=== PATIENT | female | born 1990 | race Caucasian/White ===

== ENCOUNTER 2016-07-10 09:32 | Emergency (ER) | payer OTHER ==
[2016-07-10 09:32] VITALS: BMI 23.1
[2016-07-10 09:43] VITALS: TEMP 98.1
[2016-07-10] MEDS ORDERED: Sodium Chloride 0.9% 1,000 ML IV ONE (10:03)
--- NOTE | 2016-07-10 10:07 | C.PDOC ---
History Of Present Illness 26 y/o female pmhx lupus and gastritis presents to the ED with complains of abdominal pain, nausea, vomiting and diarrhea since yesterday. Pt denies fever, chills, chest pain, SOB, urinary symptoms or any other complaints. Time Seen by Provider: 07/10/16 09:53 Chief Complaint (Nursing): Abdominal Pain History Per: Patient History/Exam Limitations: no limitations Onset/Duration Of Symptoms: Hrs Current Symptoms Are (Timing): Still Present Radiation Of Pain To:: None Quality Of Discomfort: "Pain" Associated Symptoms: Nausea, Vomiting, Diarrhea. denies: Fever, Chills, Urinary Symptoms Alleviating Factors: None Recent travel outside of the [place]: No Past Medical History Reviewed: Historical Data, Nursing Documentation, Vital Signs Vital Signs: Last Vital Signs Temp 98.1 F 07/10/16 09:42 Pulse 99 H 07/10/16 11:46 Resp 17 07/10/16 11:46 BP 140/87 07/10/16 11:46 Pulse Ox 99 07/10/16 11:46 - Medical History PMH: Gastritis, Hiatal Hernia Denies: Colonic Polyps, Fractures, Chronic Kidney Disease Surgical History: Denies: Endoscopy - [facility] Procedures CERVICAL LES CAUTERIZAT (12/15/14) D & C NEC (12/15/14) Family History: States: Unknown Family Hx - Social History Hx Tobacco Use: No Hx Alcohol Use: Yes Hx Substance Use: No - Immunization History Hx Tetanus Toxoid Vaccination: No Hx Influenza Vaccination: No Hx Pneumococcal Vaccination: No Review Of Systems Except As Marked, All Systems Reviewed And Found Negative. Constitutional: Negative for: Fever, Chills Gastrointestinal: Positive for: Nausea, Vomiting, Abdominal Pain, Diarrhea. Negative for: Hematemesis Genitourinary: Negative for: Dysuria, Frequency, Hematuria Physical Exam - Physical Exam Appears: Non-toxic, No Acute Distress Skin: Warm, Dry, No Rash Head: Atraumatic, Normacephalic Oral Mucosa: Moist Neck: Normal ROM, Supple Chest: Symmetrical Cardiovascular: Rhythm Regular Respiratory: Normal Breath Sounds, No Rales, No Rhonchi, No Wheezing Gastrointestinal/Abdominal: Soft, Tenderness (epigastric), No Guarding, No Rebound Extremity: Bilateral: Atraumatic Neurological/Psych: Oriented x3 ED Course And Treatment - Laboratory Results Result Diagrams: 07/10/16 10:38 07/10/16 10:38 O2 Sat by Pulse Oximetry: 100 (on room air) Pulse Ox Interpretation: Normal Medical Decision Making Medical Decision Making: Plan: * UA * IV fluids * labs * protonix, zofran * 1250: pt reeval. statse pain improved. non specifc leukoctyosis. on prednisone. pain improved. ct neg. pt smiling asking for d/c. Disposition - Disposition Referrals: [facility] [Outside] [facility] [Outside] Disposition: HOME/ ROUTINE Disposition Time: 12:53 Condition: STABLE Additional Instructions: please follow up with your doctor. return to er with worsening symptoms or concerns. Prescriptions: Polyethylene Glycol 3350 [Miralax] 17 gm PO DAILY PRN #1 ml PRN Reason: Constipation Famotidine [Pepcid] 20 mg PO DAILY #20 tab Instructions: Acute Abdominal Pain (ED) - Clinical Impression Clinical Impression: Abdominal pain, Constipation - Scribe Statement The provider has reviewed the documentation as recorded by the Tamiko Neal Provider Attestation: All medical record entries made by the Tamiko were at my direction and personally dictated by me. I have reviewed the chart and agree that the record accurately reflects my personal performance of the history, physical exam, medical decision making, and the department course for this patient. I have also personally directed, reviewed, and agree with the discharge instructions and disposition.
[2016-07-10] MEDS ORDERED: Sodium Chloride 0.9% 1,000 ML ONE (10:32)
[2016-07-10 10:51] LABS: BASO % 0.2 % (0.0-2.0); EOS # 0.1 K/uL (0.0-0.7); EOS % 0.4 % (0.0-4.0); HEMATOCRIT 38.5 % (34.0-47.0); LYMPH # 1.1 K/uL (1.0-4.3); LYMPH % 7.3 % (20.0-40.0); MEAN CORPUSCULAR HGB CONC 33.7 g/dL (33.0-37.0); MEAN PLATELET VOLUME 8.1 fL (7.2-11.7); MONO % 6.6 % (0.0-10.0); PLATELET COUNT 295 K/uL (130-400); RED CELL DISTRIBUTION WIDTH 13.6 % (11.5-14.5); WHITE BLOOD COUNT 14.8 K/uL (4.8-10.8)
[2016-07-10 11:00] LABS: INR 1.2
[2016-07-10 11:05] LABS: RBC URINE 4 /hpf (0-3); URINE BILIRUBIN NEGATIVE (NEGATIVE); URINE BLOOD 1+ (NEGATIVE); URINE COLOR Yellow (YELLOW); URINE GLUCOSE (UA) NORMAL (Normal); URINE KETONE NEGATIVE (NEGATIVE); URINE LEUKOCYTE ESTERASE 1+ Leu/uL (Negative); URINE PROTEIN NEGATIVE (NEGATIVE); URINE UROBILINOGEN NORMAL mg/dL (0.2-1.0); WBC URINE 3 /hpf (0-5)
[2016-07-10 11:06] LABS: CHLORIDE 99 mmol/L (98-107); POTASSIUM 3.5 mmol/L (3.6-5.2); SODIUM 141 mmol/L (132-148)
[2016-07-10 11:08] LABS: ALB/GLOB RATIO 1.1 (1.0-2.1); AST/SGOT 18 U/L (14-36); BILIRUBIN,TOTAL 0.6 mg/dL (0.2-1.3); CARBON DIOXIDE 27 mmol/L (22-30); GFR AFRICAN-AMERICAN > 60; TOTAL PROTEIN 7.3 g/dL (6.3-8.3)
[2016-07-10 11:09] LABS: ALKALINE PHOSPHATASE 53 U/L (38-126); ALT/SGPT 32 U/L (9-52); BLOOD UREA NITROGEN 13 mg/dL (7-17); GLUCOSE,RANDOM 84 mg/dL (65-105)
[2016-07-10 11:16] LABS: BASOPHIL 1 % (0-2); EOSINOPHIL 1 % (0-4); NEUTROPHIL 78 % (50-75); REACTIVE LYMPHOCYTES 2 % (0-0); TOTAL CELLS COUNTED 100
[2016-07-10] MEDS ORDERED: Morphine 4 MG/ML VIAL ONE (11:43)
[2016-07-10] MEDS ORDERED: Iodixanol 320 MG/ML 100 ML BOTTLE IV ONE (11:46)
--- NOTE | 2016-07-10 12:20 | CT ---
PROCEDURE: CT Abdomen and Pelvis with contrast HISTORY: right sided abd pain COMPARISON: Abdominal ultrasound performed 10/25/15 TECHNIQUE: Contrast dose: 100 cc Visipaque 320 Radiation dose: Total exam DLP = 266.52 mGy-cm. FINDINGS: LOWER THORAX: No visible consolidation, pleural effusion, or pneumothorax. LIVER: Hepatomegaly. Mild hypoattenuation of the liver consistent with hepatic steatosis. GALLBLADDER AND BILE DUCTS: Unremarkable. PANCREAS: Unremarkable. SPLEEN: Unremarkable. ADRENALS: Unremarkable. KIDNEYS AND URETERS: The kidneys enhance symmetrically. No evidence of hydronephrosis or obstructing calculus. VASCULATURE: No aortic aneurysm. BOWEL: The stomach is nondistended. Lack of oral contrast limits evaluation for bowel pathology. Visualized bowel loops appear within normal limits of caliber without evidence of obstruction. Severe constipation. APPENDIX: The appendix appears within normal limits of caliber. No secondary signs of acute appendicitis. PERITONEUM: Significant free fluid. No definite free air. LYMPH NODES: No bulky lymphadenopathy evident. BLADDER: Unremarkable. REPRODUCTIVE: The uterus is present. BONES: No acute osseous abnormality is detected. OTHER FINDINGS: None. IMPRESSION: Severe constipation. Hepatic steatosis. Hepatomegaly.
[2016-07-10 12:54] VITALS: O2SAT 100
[2016-07-10 13:01] VITALS: BP 116/77; PULSE 86; RESP 16
== END 2016-07-10 13:20 | disposition home or self-care (01) ==
LOC: C.ER 09:32
DX: K59.00 Constipation, unspecified (principal); R10.13 Epigastric pain

== ENCOUNTER 2016-11-24 07:10 | Day surgery (SDC) | payer OTHER ==
[2016-11-24 07:21] VITALS: BMI 24.9
[2016-11-24 07:45] VITALS: O2SAT 100
[2016-11-24] MEDS ORDERED: Propofol 10 mg/ml Inj (20 ML) ONE ×2 (08:34→08:35)
[2016-11-24] MEDS ORDERED: Midazolam 2 MG/2 ML VIAL ONE (08:34)
[2016-11-24] MEDS ORDERED: Lactated Ringer's 1,000 ML IV ONE (08:35)
[2016-11-24 09:07] VITALS: TEMP 97.8
[2016-11-24 09:44] VITALS: BP 120/80; PULSE 84; RESP 16
== END 2016-11-24 09:33 | disposition home or self-care (01) ==
LOC: C.ENDO 07:10
PROVIDERS: ATTEND Internal Medicine Gastroenterology
DX: K64.8 Other hemorrhoids (principal)
CPT/HCPCS: 45378; 84703; J2250; J2405; J2704; J7120

== ENCOUNTER 2016-12-01 07:02 | Day surgery (SDC) | payer OTHER ==
[2016-12-01] MEDS ORDERED: Propofol 10 mg/ml Inj (20 ML) ONE ×2 (09:18)
--- NOTE | 2016-12-01 09:28 | CP.SDSHP ---
Same Day Surgery H & P - History Proposed Procedure: Colonoscopy Pre-Op Diagnosis: Lower GI bleeding - Previous Medical/Surgical History Misc: Other Comments: SLE, narcolepsy Previous Surgical History: None - Allergies Allergies: Allergies No Known Allergies Allergy (Verified 07/10/16 09:40) - Current Medications Current Medications: See reconciliation sheet - Physical Exam General Appearance: WD WN female in NAD Vital Signs: Vital Signs 12/01/16 07:37 Temperature 97.0 F L Pulse Rate 82 Respiratory 18 Rate Blood Pressure 123/67 O2 Sat by Pulse 100 Oximetry Mental Status: Alert & Oriented x3 Neuro: WNL Heart: WNL Lungs: WNL GI: WNL - {Optional Preform as Required} Abdomen: WNL - Impression Impression: Lower GI bleeding Pt. Evaluated Today:Candidate for Anesthesia & Procedure: Yes - Date & Time Date: 12/01/16 Time: 09:28 Short Stay Discharge - Short Stay Discharge Admitting Diagnosis/Reason for Visit: RECTAL BLEEDING Disposition: HOME/ ROUTINE
[2016-12-01 10:10] VITALS: TEMP 97.5
[2016-12-01 10:13] VITALS: O2SAT 99
[2016-12-01 10:49] VITALS: RESP 14
[2016-12-01 10:51] VITALS: PULSE 77
[2016-12-01 10:57] VITALS: BP 117/78
== END 2016-12-01 10:55 | disposition home or self-care (01) ==
LOC: C.ENDO 07:02
PROVIDERS: ATTEND Internal Medicine Gastroenterology
DX: K64.8 Other hemorrhoids (principal)
CPT/HCPCS: 45378; 84703; J2704; J7040